=== PATIENT | male | born 1950 | race Caucasian/White ===

== ENCOUNTER 2018-10-03 20:10 | Emergency (ER) | payer OTHER ==
[~2018-10-03] VITALS: Ht 180.3 cm; Wt 98.9 kg
[~2018-10-03 20:10] MED LIST: ATENOLOL100 MG PO; LOTREL 10-40 M1 EACH PO
== END 2018-10-04 14:13 | disposition home or self-care (01) ==
LOC: ER 20:10 → EDBD 20:11 → ER 20:11
DX: N20.1 Calculus of ureter (principal); R10.32 Left lower quadrant pain